=== PATIENT | male | born 1970 | race Caucasian/White ===

== ENCOUNTER → 2020-11-01 | Outpatient (CLI) | payer BC, OTHER, SELFPAY ==
[~2020-11-01] MED LIST: CYCLOBENZAPRINE10 MG PO; FLOMAX 0.4 MG0.4 MG PO; NAPROSYN500 MG PO; SINGULAIR10 MG PO
== END ==
LOC: KOH-I 15:06
DX: R06.02 Shortness of breath (principal)
CPT/HCPCS: 71046

== ENCOUNTER → 2020-11-27 | Outpatient (CLI) | payer BC, OTHER | LOC: ECHO 11:18 → NM 13:00 | DX: R06.02 Shortness of breath (principal); R68.89 Other general symptoms and signs; I07.1 Rheumatic tricuspid insufficiency | CPT/HCPCS: ECHO; 78452; 93017; 93306; A9502; J2785 ==

== ENCOUNTER → 2021-03-05 | Outpatient (CLI) | payer BC, OTHER | LOC: HEART 5 10:38 | DX: J45.30 Mild persistent asthma, uncomplicated (principal) | CPT/HCPCS: 94010; 95012 ==

== ENCOUNTER → 2021-03-20 | Outpatient (CLI) | payer BC, OTHER | LOC: KOH-I 11:07 | DX: M25.561 Pain in right knee (principal); M17.11 Unilateral primary osteoarthritis, right knee | CPT/HCPCS: 73560 ==

== ENCOUNTER → 2021-11-12 | Outpatient (CLI) | payer OTHER | LOC: HEART 5 11:33 | DX: J45.30 Mild persistent asthma, uncomplicated (principal) | CPT/HCPCS: 94010; 95012 ==